=== PATIENT | female | born 1995 | race Hispanic/Latino ===

== ENCOUNTER 2021-05-17 19:02 | Emergency (ER) | payer OTHER, SELFPAY ==
[2021-05-17 19:22] VITALS: BP 109/78; PULSE 89; RESP 16; TEMP 36.8; O2SAT 99
[2021-05-17 19:40] LABS: Basophils Percent Auto 0.3 % (0.2-1.2); Eosinophils Absolute Auto 0.1 K/mm3 (0-0.3); Eosinophils Percent Auto 0.8 % (0-4.4); Hematocrit 36.4 % (37.0-47.0); Hemoglobin 12.1 g/dL (12.0-15.0); Immature Granulocyte Absolute 0.06 K/mm3 (0.00-0.031); Immature Granulocyte Percent A 0.6 % (0-0.5); Lymphocytes Absolute Auto 2.66 K/mm3 (0.9-3.2); Lymphocytes Percent Auto 27.7 % (18.3-44.2); Mean Corpuscular HGB Conc 33.2 g/dl (32-36); Mean Corpuscular Hemoglobin 28.6 pg (26-34); Mean Corpuscular Volume 86.1 fl (80-100); Mean Platelet Volume 9.7 fl (7.4-10.4); Monocytes Absolute Auto 0.8 K/mm3 (0.1-0.6); Neutrophils Percent Auto 62.6 % (45.5-73.1); Platelet Count Result 272 k/mm3 (150-375); Red Blood Count 4.23 M/mm3 (4.2-5.4); Red Cell Distribution Width 11.9 % (11.5-14.5); White Blood Count 9.6 K/mm3 (4.5-10.0)
[2021-05-17 19:51] LABS: Alanine Aminotransferase 13 U/L (4-35); Albumin Level 3.8 g/dL (3.5-5.1); Alkaline Phosphatase 104 U/L (38-126); Anion Gap 7 mmol/L (8-16); Aspartate Amino Transferase 20 U/L (14-36); Bilirubin,Total 0.3 mg/dL (0.2-1.3); Blood Urea Nitrogen 5 mg/dL (7-17); Calcium 8.8 mg/dL (8.4-10.2); Carbon Dioxide 20 mmol/L (22-30); Chloride 108 mmol/L (98-107); Estimated CRCL calculation 184 ml/min; Estimated Glomerular Filt Rate > 60; Glucose 82 mg/dL (65-105); Lipase 64 U/L (23-300); Potassium 3.5 mmol/L (3.4-5.0); Sodium 135 mmol/L (137-145)
[2021-05-17 20:28] LABS: Add Urine Microscopic? YES; Appearance Urine Clear (Clear); Bilirubin Urine Negative (Negative); Blood Urine Negative (Negative); Color Urine Colorless (Yellow); Glucose Urine UA Negative (Negative); Ketones Urine Trace mg/dL (Negative); Leukocyte Esterase Ur Negative LEU/UL (Negative); Nitrate Urine Negative (Negative); Protein Urine Negative (Negative); RBC Urine 0-2 /hpf (0-2); Squamous Epithelial Cell Urine Few /hpf (Few); Urobilinogen Urine Negative mg/dL (<2.0); WBC Urine 0-3 /hpf
[2021-05-17 20:30] LABS: Specific Grav Ur 1.001 (1.001-1.035)
[2021-05-17] MEDS: MORPHINE SULFATE (*CRX) 2 MG/ML INJ IV PUSH (21:00)
[2021-05-17] MEDS: ONDANSETRON INJ 4 MG/2 ML VIAL IV PUSH (21:00)
[2021-05-17] MEDS: SODIUM CHLORIDE 0.9% IV 1,000 ML 999 ML IV CONT (21:00)
--- NOTE | 2021-05-17 21:51 | ED.HA ---
HPI - Headache General Chief Complaint: Headache Stated Complaint: Dizziness - BLANCHARD 26 wks preg Time Seen by Provider: 05/17/21 20:21 Source: patient Mode of arrival: ambulatory Limitations: language barrier History of Present Illness HPI Narrative: 25-year-old about 26 weeks of gestation here with complaints of headache, feeling nauseated since this morning. Patient states that she went to work felt extremely dizzy and nauseated. She denies any fever or chills. Denies any abdominal cramping or vaginal bleeding. 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 MD elicited complaint: headache Onset (ago): day(s) (1) Onset description: gradually Location: frontal Severity: moderate Quality & Timing: aching Exacerbating factors: none Relieving factors: nothing Associated symptoms: nausea Treatments prior to arrival: none Related Data Home Medications Medication Instructions Recorded Confirmed PreCare 05/17/21 Allergies Allergy/AdvReac Type Severity Reaction Status Date / Time No Known Allergies Allergy Verified 05/17/21 20:44 Review of Systems Review of Systems: All systems reviewed & are unremarkable except as noted in HPI and below Constitutional: Constitutional: Reports no additional constitutional complaints Eyes: Eyes: Reports no additional eye complaints ENT: Reports system reviewed and no additional complaints, except as documented Cardiovascular: Cardiovascular: Reports no additional cardiovascular complaints Respiratory: Respiratory: Reports no additional respiratory complaints Gastrointestinal: Gastrointestinal: Reports as per HPI Musculoskeletal: Musculoskeletal: Reports no additional musculoskeletal complaints Neurologic: Reports system reviewed and no additional complaints, except as documented Exam Narrative: Exam Narrative: GENERAL: Well-appearing, well-nourished, and in no acute distress. HEAD: Normocephalic, atraumatic. EYES: PERRLA and EOMI. ENT: Nares clear, no rhinorrhea or epistaxis. Mucous membranes moist. NECK: Supple. CHEST: Clear to auscultation. No respiratory distress. HEART: Regular rate and rhythm. No murmur heard. Normal peripheral pulses. ABDOMEN: Gravid abdomen EXTREMITIES: Normal range of motion. No edema. SKIN: Warm, dry, no rash. NEURO: No focal deficits. Alert and oriented x3. PSYCH: Normal mood and affect. Course Course Emergency Course: Patient feeling much better after IV fluids, Zofran and morphine . Discussed with Dr. Lucinda burnsay to Discharge Vital Signs Vital signs: Vital Signs Temperature 36.8 C 05/17/21 19:22 Pulse Rate 89 05/17/21 19:22 Respiratory Rate 16 05/17/21 19:22 Blood Pressure 109/78 05/17/21 19:22 Pulse Oximetry 99 05/17/21 19:22 Temperature 36.8 C 05/17/21 19:22 Pulse Rate 89 05/17/21 19:22 Respiratory Rate 16 05/17/21 19:22 Blood Pressure 109/78 05/17/21 19:22 Pulse Oximetry 99 05/17/21 19:22 MDM - Headache Lab Data Result diagrams: 05/17/21 19:33 05/17/21 19:32 Labs: Lab Results 05/17/21 05/17/21 05/17/21 Range/Units 19:32 19:33 20:19 WBC 9.6 (4.5-10.0) K/mm3 RBC 4.23 (4.2-5.4) M/mm3 Hgb 12.1 (12.0-15.0) g/dL Hct 36.4 L (37.0-47.0) % MCV 86.1 (80-100) fl MCH 28.6 (26-34) pg MCHC 33.2 (32-36) g/dl RDW 11.9 (11.5-14.5) % Plt Count 272 (150-375) k/mm3 MPV 9.7 (7.4-10.4) fl Immature Gran % (Auto) 0.6 H (0-0.5) % Neut % (Auto) 62.6 (45.5-73.1) % Lymph % (Auto) 27.7 (18.3-44.2) % [place] % (Auto) 8.0 (2.6-8.5) % Eos % (Auto) 0.8 (0-4.4) % Baso % (Auto) 0.3 (0.2-1.2) % Lymph # (Auto) 2.66 (0.9-3.2) K/mm3 [place] # (Auto) 0.8 H (0.1-0.6) K/mm3 Eos # (Auto) 0.1 (0-0.3) K/mm3 Baso # (Auto) 0.0 (0.0-0.1) K/mm3 Abs Immat Gran (auto) 0.06 H (0.00-0.031) K/mm3 Absolute Neuts (auto) 6.0 (1.3-6.7) K/mm3 Absolute Nucleated RBC 0.0 (
[2021-05-17 22:18] VITALS: BP 108/70; PULSE 82; RESP 20; TEMP 36.8; O2SAT 100
== END 2021-05-17 22:18 | disposition home or self-care (01) ==
PROVIDERS: Emergency Provider Family Medicine; PCP Obstetrics & Gynecology Gynecology
DX: O26.892 Other specified pregnancy related conditions, second trimester (principal); R51.9 Headache, unspecified
CPT/HCPCS: 36415; 80053; 81001; 83690; 85025; 96361; 96374; 96375; 99284; J2270; J2405; J7030

== ENCOUNTER 2021-08-05 15:27 | Inpatient (IN) | payer OTHER, SELFPAY ==
[2021-08-05 15:46] VITALS: BP 149/85; PULSE 98
[2021-08-05 15:55] LABS: Basophils Percent Auto 0.2 % (0.2-1.2); Eosinophils Percent Auto 0.2 % (0-4.4); Hemoglobin 12.8 g/dL (12.0-15.0); Immature Granulocyte Absolute 0.05 K/mm3 (0.00-0.031); Immature Granulocyte Percent A 0.5 % (0-0.5); Lymphocytes Percent Auto 21.6 % (18.3-44.2); Mean Corpuscular HGB Conc 33.7 g/dl (32-36); Mean Corpuscular Hemoglobin 26.9 pg (26-34); Mean Corpuscular Volume 79.8 fl (80-100); Mean Platelet Volume 10.6 fl (7.4-10.4); Monocytes Absolute Auto 0.6 K/mm3 (0.1-0.6); Monocytes Percent Auto 6.2 % (2.6-8.5); Neutrophils Absolute Auto 6.9 K/mm3 (1.3-6.7); Neutrophils Percent Auto 71.3 % (45.5-73.1); Platelet Count Result 258 k/mm3 (150-375); Red Blood Count 4.76 M/mm3 (4.2-5.4); Red Cell Distribution Width 13.4 % (11.5-14.5); White Blood Count 9.7 K/mm3 (4.5-10.0)
[2021-08-05 16:00] VITALS: BMI 37.4
[2021-08-05 16:01] VITALS: BP 137/82; PULSE 107
[2021-08-05] MEDS: OXYTOCIN 30 UNITS/NS 500 ML 30 UNITS/500 ML BAG 999 UNITS IV CONT (16:15)
[2021-08-05 16:16] VITALS: BP 127/50; PULSE 104
--- NOTE | 2021-08-05 16:19 | WPDOBADMIT ---
Obstetrics - Admit Note Admission Note: record reviewed. No pertinent additions to the history and/or any subsequent changes in the physical findings that are not consistent with the expected course of the were found. Additions to the history and/or subsequent changes in the physical findings follow. Here in active labor. 7cm on arrival. 9 cm on my arrival. AROM with clear fluid then complete.
--- NOTE | 2021-08-05 16:22 | PM.OBPRVD ---
OB - Delivery Note Procedure Delivery date: 08/07/21 Intrapartal events: Precipitous Labor < 3 hours Induction method: none Delivery monitor: external FHT and external uterine Route of delivery: Laceration Description: None Specimen: No Quantitative Blood Loss (ml): 100 Anesthesia type: None Disposition: floor [place] Baby Date of : 08/05/21 Weeks of gestation at delivery: 38 Infant gender: Male presentation: vertex position: Right Occiput Anterior Placenta delivery description: Spontaneous cord vessel description: 3 Vessels (with loose true knot) score one minute: 9 score five minutes: 9
--- NOTE | 2021-08-05 16:24 | P.DS_ITS ---
DS: Admitting Diagnosis Discharge Date August 07, 2021 Admitting Diagnosis active labor @ 38 03/01 DS: Discharge Diagnosis Discharge Diagnosis (1) (normal spontaneous vaginal delivery): Code(s): O80 - Encounter for full-term uncomplicated delivery Status: Acute OB - DS: Summary OB Procedures : Ultrasound OB Procedures Intrapartum: Spontaneous Vag Delivery OB Procedures: : P.P. tubal ligation Peripartum Data Delivery Method: Natural Vaginal Laceration Description: None complications: none Status at Discharge Functional status at discharge: independent ambulation Overall status at discharge: patient is progressing back to baseline Time Spent with Patient Time attestation: Total time spent providing and/or coordinating discharge services: DS: Data Data Completed and Pending Labs on day of discharge: Labs from last 24 hours 08/05/21 08/05/21 15:47 15:47 WBC 9.7 RBC 4.76 Hgb 12.8 Hct 38.0 MCV 79.8 L MCH 26.9 MCHC 33.7 RDW 13.4 Plt Count 258 MPV 10.6 H Immature Gran % (Auto) 0.5 Neut % (Auto) 71.3 Lymph % (Auto) 21.6 [place] % (Auto) 6.2 Eos % (Auto) 0.2 Baso % (Auto) 0.2 Lymph # (Auto) 2.10 [place] # (Auto) 0.6 Eos # (Auto) 0.0 Baso # (Auto) 0.0 Abs Immat Gran (auto) 0.05 H Absolute Neuts (auto) 6.9 H Absolute Nucleated RBC 0.0 Nucleated RBC % 0.0 RPR Pending Discharge Plan Discharge Attending physician on discharge: Donna Lopez Discharging Clinician: Donna Lopez Anticipated Discharge Date/Time: 08/07/21 16:25 Patient Disposition: Home, Self-Care Activity: may shower and pelvic rest Diet: regular Patient Instructions: Antibiotic Form Stand Alone Forms: General Discharge Information Follow-up/Referrals: Donna Lopez MD [Physician] - 6 Weeks Discharge Medications: New hydrocodone-acetaminophen 5-325 mg tablet 1 tablet PO Q4H PRN (Reason: pain) Qty: 20 RF: 0 Continued PreCare 1 tab-cap PO DAILY RF: 0 Date of admission: 08/05/21 15:27 Primary Care Provider: Enzo,Krissy Admitting Provider: Donna Lopez Attending physician on admission: Donna Lopez Condition: Stable
[2021-08-05] MEDS: OXYTOCIN 30 UNITS/NS 500 ML 30 UNITS/500 ML BAG 125 UNITS IV CONT (16:30)
[2021-08-05] MEDS: IBUPROFEN 600 MG TABLET PO (16:45)
--- NOTE | 2021-08-05 16:48 | LDADM ---
This patient, Cate Rosa, was admitted to Labor/Delivery/Recovery 106 on 08/05/21 at 15:27. Plans for labor, pain management and were discussed with patient. Patient/family oriented to hospital policies and general routines including ID bracelet, bed and alarms, visiting hours, pain management, procedures, bathroom and other care routines, personal items, smoking policy, room service/diet and guest tray routines, security routines, and visiting hours. Patient/Family are encouraged to report perceived risks to care and to ask questions if they do not understand what they are told or what they should do. See OBIX for further documentation.
[2021-08-05 16:54] VITALS: BP 126/82; PULSE 93
[2021-08-05] MEDS: WITCH HAZEL 40 PADS 1 PAD TOPICAL (18:33)
[2021-08-05] MEDS: BENZOCAINE 20% AER SPR (*SP) 56 GM CAN 1 SPRAY TOPICAL (18:33)
--- NOTE | 2021-08-05 18:44 | OBPPTRN ---
Patient transferred to post room #281 via wheelchair. Support person present. Oriented to unit, room, information board, rooming in, admission packet and security measures. Patient verbalizes understanding.
[2021-08-05 19:00] VITALS: BP 109/59; PULSE 66; RESP 16; TEMP 37; O2SAT 99
[2021-08-05] MEDS: ACETAMINOPHEN 325 MG TABLET 650 MG PO (21:21)
[2021-08-05 23:30] VITALS: BP 104/51; PULSE 81; RESP 16; TEMP 36.4; O2SAT 99
[2021-08-06] MEDS: IBUPROFEN 600 MG TABLET PO ×4 (03:27→23:22)
[2021-08-06 04:00] VITALS: BP 108/56; PULSE 75; RESP 16; TEMP 36.6; O2SAT 99
[2021-08-06 04:19] LABS: Hematocrit 33.6 % (37.0-47.0); Hemoglobin 10.9 g/dL (12.0-15.0)
--- NOTE | 2021-08-06 08:30 | PC.NURSE ---
PT introductions made and plan of care discussed per post , pain management, breast feeding, daily care activities. PT received instructions and education this shift per one to one discussion, mom baby care guide and demonstration. PT and fob both recipients of such instructions and language being the only barrier to learning. PT verbalized understanding of such care.
[2021-08-06] MEDS: ACETAMINOPHEN 325 MG TABLET 650 MG PO ×3 (08:40→23:22)
[2021-08-06 08:42] VITALS: BP 96/54; PULSE 82; RESP 18; TEMP 36.6; O2SAT 99
[2021-08-06] MEDS: DOCUSATE SODIUM 100 MG CAPSULE PO ×2 (08:42→17:17)
[2021-08-06] MEDS: MULTIVIT/MIN/PREN/FOL AC/IRON TABLET 1 TAB PO (08:42)
--- NOTE | 2021-08-06 09:39 | PM.OBPNVD ---
OB - PN: Subj Subjective Date/time seen: 08/06/21 09:39 Patient comments: no complaints and pain well controlled baby status: doing well OB - PN: Obj Data Labs CBC & Chem 7: 08/06/21 03:25 Labs: Laboratory Results - last 24 hr 08/05/21 08/05/21 08/06/21 15:47 15:47 03:25 WBC 9.7 RBC 4.76 Hgb 12.8 10.9 L Hct 38.0 33.6 L MCV 79.8 L MCH 26.9 MCHC 33.7 RDW 13.4 Plt Count 258 MPV 10.6 H Immature Gran % (Auto) 0.5 Neut % (Auto) 71.3 Lymph % (Auto) 21.6 [place] % (Auto) 6.2 Eos % (Auto) 0.2 Baso % (Auto) 0.2 Lymph # (Auto) 2.10 [place] # (Auto) 0.6 Eos # (Auto) 0.0 Baso # (Auto) 0.0 Abs Immat Gran (auto) 0.05 H Absolute Neuts (auto) 6.9 H Absolute Nucleated RBC 0.0 Nucleated RBC % 0.0 Blood Type O Positive Antibody Screen Negative OB - PN A/P Plan day: 1 Plan: routine care and other (plan pp BTL tomorrow) Time Spent With Patient Time: Total time spent is greater than 50% in coordination of care (as documented) at patient's floor/unit and/or counseling patient: Exam : Bimanual exam- vagina & uterus: other (Uterus firm, nt @U)
[2021-08-06 17:15] VITALS: BP 100/62; PULSE 80; RESP 16; TEMP 36.8; O2SAT 99
[2021-08-06 23:00] VITALS: BP 105/71; PULSE 69; RESP 16; TEMP 36.8
[2021-08-07 07:50] VITALS: BP 118/67; PULSE 82; RESP 16; TEMP 36.7; O2SAT 100
--- NOTE | 2021-08-07 08:45 | PM.OBPNVD ---
OB - PN: Subj Subjective Date/time seen: 08/07/21 08:45 Patient comments: no complaints, pain well controlled and other (plans pp tubal today) baby status: doing well OB - PN: Obj Data Labs CBC & Chem 7: 08/06/21 03:25 OB - PN A/P Plan day: 2 Plan: routine care, discharge home and other (plan pp tubal this am) Time Spent With Patient Time: Total time spent is greater than 50% in coordination of care (as documented) at patient's floor/unit and/or counseling patient: Exam : Bimanual exam- vagina & uterus: other (Uterus firm, nt @U)
--- NOTE | 2021-08-07 08:46 | P.HP_ITS ---
H&P: HPI History of Present Illness Date/Time: 08/07/21 08:46 25-year-old 4 now para 4 proceeding with tubal ligation. Patient is aware this is a permanent and sterilizing procedure which will render her unable to have further children. Risks of infection, bleeding, injury to internal organs, and failure with increased risk of ectopic were reviewed in the office with a patrol police sergeant. Patient states no further questions today. She agrees to proceed. Chief Complaint: encounter for sterilization PMFSH Past Medical History Medical History (Updated 08/07/21 @ 08:49 by Donna Lopez MD) (normal spontaneous vaginal delivery) X4 Social History Social History Substance use: never Spiritual care concerns: No Meds Home Medications and Allergies Home Medications Medication Instructions Recorded Confirmed Type PreCare 1 tab-cap PO DAILY 05/17/21 08/05/21 History Allergies Allergy/AdvReac Type Severity Reaction Status Date / Time No Known Allergies Allergy Verified 05/17/21 20:44 Vital Signs Vital Signs - 24 hr 08/06/21 17:15 08/06/21 23:00 08/07/21 07:50 Temperature 98.2 F 98.2 F 98.1 F Pulse Rate 80 69 82 Respiratory Rate 16 16 16 Blood Pressure 100/62 105/71 118/67 Pulse Oximetry 99 100 Exam Const: General: comfortable and no acute distress GI: GI Palp: No abdominal tenderness and Yes Other GI palpation findings present ( fundus firm at umbilicus) Assessment and Plan Assessment and plan (1) (normal spontaneous vaginal delivery): Code(s): O80 - Encounter for full-term uncomplicated delivery Status: Acute Assessment and Plan: plan to discharge home today after recovery room (2) Encounter for sterilization: Code(s): Z30.2 - Encounter for sterilization Status: Acute Assessment and Plan: plan to proceed with tubal ligation
[2021-08-07 09:29] LABS: Rapid Plasma Reagin Non-Reactive (NonReactive)
--- NOTE | 2021-08-07 09:39 | WPDANESEPPF ---
Anes - Initial Pre Proc Eval Procedure: Operation Date: 08/07/21 10:30 Proposed Procedures p Post- Tubal Ligation - Donna Lopez MD Date/Time: 08/07/21 09:39 Surgeon: Donna Lopez MD Pre Op Diagnosis: Labor-Contractions Patient Data Age: 25 Gender: F Height: 1.52 m Weight: 87 kg Last Vital Signs Temp 36.7 C 08/07/21 07:50 Pulse 82 08/07/21 07:50 Resp 16 08/07/21 07:50 BP 118/67 08/07/21 07:50 Pulse Ox 100 08/07/21 07:50 Allergies Allergy/AdvReac Type Severity Reaction Status Date / Time No Known Allergies Allergy Verified 05/17/21 20:44 Home Medications Medication Instructions Recorded Confirmed Type PreCare 1 tab-cap PO DAILY 05/17/21 08/05/21 History hydrocodone-acetaminophen 1 tablet PO Q4H PRN #20 tablet 08/07/21 Rx Laboratory Tests 08/05/21 15:47 RPR Non-reactive (NonReactive) Patient hx anesthesia problems: none Family hx anesthesia problems: none [facility] Past Medical History Medical History (Updated 08/07/21 @ 08:50 by Donna Lopez MD) (normal spontaneous vaginal delivery) X4 Social History Social History Substance use: never Spiritual care concerns: No Anes - Eval Final PreProcedure Day of Procedure 08/07/21 09:39 Patient weight: obese Heart: regular rate and rhythm Lungs: clear to auscultation and normal air movement Airway: Mallampati scale class II Neurological: alert and oriented Last oral intake: >/= 8 hours ASA classification: II Emergent: no Anesthetic plan: proceed Anesthesia type and monitoring: general ETT and standard monitoring Informed Consent: The patient's anesthetic plan and its attendant risks and benefits were discussed with the patient/family/POA. Questions were solicited and answers provided to the satisfaction of the patient/family/POA.
[2021-08-07 10:00] VITALS: BP 117/76; PULSE 74; RESP 18; TEMP 36.2; O2SAT 100
[2021-08-07] MEDS: LACTATED RINGERS 1,000 ML 30 ML IV CONT ×2 (10:00→11:18)
--- NOTE | 2021-08-07 10:22 | WPDHPUPDATE1 ---
History and Physical Update Update Date/Time: 08/07/21 10:22 History and Physical has been reviewed, including an updated exam of the patient. There are NO changes in the patient's condition. Risks, benefits, and alternatives have been discussed and questions answered. Patient agrees to proceed with procedure.
--- NOTE | 2021-08-07 10:48 | SUR.PREOP ---
0945: LORI PEREZOR PRAMOD UTILIZED FOR ANES CONSULT AND PREOP RN COMMUNICATION
--- NOTE | 2021-08-07 10:56 | P.OP_ITS ---
Procedure Note - Detailed Date of Procedure 08/07/21 Pre-op Diagnosis encounter for sterilization Post-op Diagnosis same Procedure Performed Bilateral tubal ligation Surgeon Donna Lopez MD Anesthesia general Findings Normal-appearing tubes and ovaries Description of Procedure The patient was taken to the operating room and placed under anesthesia in the dorsal supine position. She was prepped and draped in usual sterile fashion. A vertical skin incision was made with a scalpel below the umbilicus approximately 4cm. The fascia is grasped with an [facility] and entered using Gonzalez scissors. The fascial incision was extended superiorly and inferiorly under direct visualization with Gonzalez scissors. The peritoneum was tented and entered with Metzenbaum scissors. The left tube is grasped with a Sullivan pulled through the incision crossclamped and the distal 2/3 of the tube excised. The pedicles tied off using 0 Vicryl. The identical procedure was performed on the right side. Good hemostasis is noted at both pedicles. The fascia is closed using 0 Vicryl in a running fashion. Subcutaneous tissues are irrigated and made hemostatic using Bovie cautery. Skin incision was closed using 4-0 Vicryl in a subcuticular fashion with Dermabond placed over the incision. Patient is awakened from anesthesia and taken to recovery room in stable condition. Sponge, needle, and instrument counts are correct per the OR staff. Estimated Blood Loss 5 Drains No Packing No Pathology yes (Bilateral tubes) Complications No immediate complications Condition stable Disposition PACU
[2021-08-07 11:18] VITALS: BP 119/68; PULSE 102; RESP 22; TEMP 36.5; O2SAT 99
[2021-08-07] MEDS: fentaNYL CITRATE INJ (*CRX) 100 MCG/2 ML VIAL 25 MCG IV PUSH ×4 (11:27→11:55)
[2021-08-07 11:30] VITALS: BP 122/82; PULSE 77; RESP 27; O2SAT 100
[2021-08-07 11:46] VITALS: BP 125/81; PULSE 83; RESP 21; O2SAT 98
[2021-08-07] MEDS: IBUPROFEN 600 MG TABLET PO (13:58)
[2021-08-07] MEDS: HYDROcodone/acetaminophen (*CRX) 5-325 MG TABLET 1 TAB PO (13:58)
--- NOTE | 2021-08-07 16:32 | PC.NURSE ---
Discharge instructions given used [facility] marbleizing machine tender
--- NOTE | 2021-08-10 07:32 | PM.OBTRLD ---
OB - Triage/Final Diagnosis Visit Information Reason for evaluation: threatened labor Comments/Additional reasons for admission: I have assessed the risk for this patient, Cate Rosa, and determined that she would benefit from observation care. Evaluation Laboratory results: Laboratory Tests 08/05/21 08/05/21 08/05/21 15:47 15:47 15:47 WBC 9.7 RBC 4.76 Hgb 12.8 Hct 38.0 MCV 79.8 L MCH 26.9 MCHC 33.7 RDW 13.4 Plt Count 258 MPV 10.6 H Immature Gran % (Auto) 0.5 Neut % (Auto) 71.3 Lymph % (Auto) 21.6 [place] % (Auto) 6.2 Eos % (Auto) 0.2 Baso % (Auto) 0.2 Lymph # (Auto) 2.10 [place] # (Auto) 0.6 Eos # (Auto) 0.0 Baso # (Auto) 0.0 Abs Immat Gran (auto) 0.05 H Absolute Neuts (auto) 6.9 H Absolute Nucleated RBC 0.0 Nucleated RBC % 0.0 RPR Non-reactive Blood Type O Positive Antibody Screen Negative 08/06/21 03:25 WBC RBC Hgb 10.9 L Hct 33.6 L MCV MCH MCHC RDW Plt Count MPV Immature Gran % (Auto) Neut % (Auto) Lymph % (Auto) [place] % (Auto) Eos % (Auto) Baso % (Auto) Lymph # (Auto) [place] # (Auto) Eos # (Auto) Baso # (Auto) Abs Immat Gran (auto) Absolute Neuts (auto) Absolute Nucleated RBC Nucleated RBC % RPR Blood Type Antibody Screen
[2021-08-10 08:35] VITALS: BP 124/85; PULSE 86; RESP 20; TEMP 36.9; O2SAT 100
== END 2021-08-07 16:32 | disposition home or self-care (01) | DRG 541 ==
LOC: ANHLDR 16:25 → ANHOB2 19:33
PROVIDERS: Admitting Provider Obstetrics & Gynecology Gynecology; PCP Registered Nurse; Visit Provider Obstetrics & Gynecology Gynecology
PROC: 0UB70ZZ Excision of Bilateral Fallopian Tubes, Open Approach (ICD-10-PCS; CPT 58605; principal; 2021-08-07 10:30)
DX: O62.3 Precipitate labor (principal); Z30.2 Encounter for sterilization; O69.2XX0 Labor and delivery complicated by other cord entanglement, with compression, not applicable or unspecified; Z3A.38 38 weeks gestation of pregnancy; Z37.0 Single live birth
CPT/HCPCS: 36415; 85014; 85018; 85025; 86592; 86850; 86900; 86901; 88302; A9270; J0330; J1100; J2250; J2405; J2590; J2704; J3010; J7120

== ENCOUNTER 2023-04-04 17:13 | Emergency (ER) | payer OTHER, SELFPAY ==
--- NOTE | ~2023-04-04 | CT_ITS ---
EXAMINATION: CT brain wo con DATE: 04/04/2023 18:19 INDICATION: Headache and dizziness. TECHNIQUE: Computed tomography (CT) of the head was performed without intravenous contrast. The mA wa s adjusted according to patient size. Iterative reconstruction technique was employed. The dose-lengt h product was 605.33 mGy-cm. COMPARISON: None FINDINGS: There is no intracranial hemorrhage, acute infarction, or abnormal intracranial mass lesion . The ventricles are normal in size. There is mild mucosal thickening in the paranasal sinuses. The m astoid air cells are normal. The orbits are normal. IMPRESSION: 1. Normal brain. Reviewed, dictated and finalized at location E. IMPRESSION: 1. Normal brain.
[2023-04-04 17:39] VITALS: BP 112/68; PULSE 70; RESP 16; TEMP 36.4; O2SAT 100
--- NOTE | 2023-04-04 18:06 | ED.HA ---
HPI - Headache General Chief Complaint: Headache <NOLA Gilmore Last Filed: 04/04/23 22:47> Stated Complaint: headache <NOLA Gilmore Last Filed: 04/04/23 22:47> Time Seen by Provider: 04/04/23 17:46 <Lindsey Umana PA-C - Last Filed: 04/04/23 22:47> History of Present Illness HPI Narrative: 27 y/o F with a history of headaches reports for evaluation of a frontal headache that started this morning with associated dizziness. Service Specialist used to obtain history. 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 She reports a popping sensation in her ears that started today. States this headache is unlike her previous headaches and is achy in nature. She denies neck pain, loss of consciousness, trauma, fevers, body aches, chills, cough or congestion, focal numbness or weakness, vomiting. She reports associated nausea and photophobia. <NOLA Gilmore Last Filed: 04/04/23 22:47> Related Data Home Medications: Home Medications Medication Instructions Recorded Confirmed PreCare 1 tab-cap PO DAILY 05/17/21 08/05/21 <Lindsey Umana PA-C - Last Filed: 04/04/23 22:47> Allergies/Adverse Reactions: Allergies Allergy/AdvReac Type Severity Reaction Status Date / Time No Known Allergies Allergy Verified 04/04/23 17:13 <NOLA Gilmore Last Filed: 04/04/23 22:47> Review of Systems Review of Systems: CONSTITUTIONAL: Denies fever, chills EYES: Denies visual changes, redness, or discharge. ENT: Denies rhinorrhea, congestion, sore throat, or otalgia. CARDIOVASCULAR: Denies chest pain, palpitations, or edema. RESPIRATORY: Denies cough or dyspnea. GASTROINTESTINAL: Denies abdominal pain, nausea, vomiting, or diarrhea. GENITOURINARY: Denies dysuria or hematuria. SKIN: Denies rash or itching. MUSCULOSKELETAL: Denies back pain, joint pain, or myalgia. NEUROLOGIC: See HPI PSYCHIATRIC: Denies anxiety or depression. <Lindsey Umana PA-C - Last Filed: 04/04/23 22:47> [facility] Past Medical History Medical History: Medical History (normal spontaneous vaginal delivery) X4 <Lindsey Umana PA-C - Last Filed: 04/04/23 22:47> Social History Social History: Social History Substance use: never Spiritual care concerns: No <Lindsey Umana PA-C - Last Filed: 04/04/23 22:47> Exam Narrative: GENERAL: Well-appearing, in no acute distress. Patient resting comfortably in exam bed. She is pleasant and conversational. HEAD: Normocephalic EYES: PERRLA, extraocular movements intact. No nystagmus ENT: Nares clear. Mucous membranes moist. Oropharynx without tonsillar hypertrophy exudate or other lesions. Tenderness over the frontal and maxillary sinuses bilaterally. Bilateral TMs are webster and nonbulging. NECK: Supple. Negative Brudzinski, no nuchal rigidity CHEST: No respiratory distress. Clear to auscultation, no adventitious breath sounds. HEART: Regular rate and rhythm. No murmur heard. Normal peripheral pulses. EXTREMITIES: Normal range of motion. No edema. SKIN: Warm, dry, no rash. NEURO: No focal deficits. Alert and oriented x3. Cranial nerves II through XII intact. Strength 5 out of 5 in bilateral upper and lower extremities. Normal [id number]. Negative pronator drift. PSYCH: Normal mood and affect. <Lindsey Umana PA-C - Last Filed: 04/04/23 22:47> Course [facility] THRESHER/PA Physician Supervision This is a was performed by both a physician and an APC. I performed all aspects of the MDM as documented w/ the following additions: 27-year-old Faroese-speaking female presenting with frontal headache. Extensive workup revealed sinusitis. Patient was discharged with symptomatic treatment. Return precauti
[2023-04-04] MEDS: SODIUM CHLORIDE 0.9% IV 1,000 ML 999 ML IV CONT (18:26)
[2023-04-04] MEDS: ACETAMINOPHEN 500 MG TABLET 1000 MG PO (18:27)
[2023-04-04] MEDS: diphenhydrAMINE HCl INJ 50 MG/ML VIAL 25 MG IV PUSH (18:27)
[2023-04-04] MEDS: PROCHLORPERAZINE EDISYLATE 10 MG/2 ML VIAL IV PUSH (18:27)
[2023-04-04 18:41] LABS: Basophils Percent Auto 0.5 % (0.2-1.2); Eosinophils Absolute Auto 0.1 K/mm3 (0-0.3); Eosinophils Percent Auto 1.7 % (0-4.4); Hematocrit 39.9 % (37.0-47.0); Hemoglobin 13.2 g/dL (12.0-15.0); Immature Granulocyte Absolute 0.02 K/mm3 (0.00-0.031); Immature Granulocyte Percent A 0.2 % (0-0.5); Lymphocytes Absolute Auto 3.53 K/mm3 (0.9-3.2); Lymphocytes Percent Auto 43.3 % (18.3-44.2); Mean Corpuscular HGB Conc 33.1 g/dl (32-36); Mean Corpuscular Hemoglobin 28.9 pg (26-34); Mean Corpuscular Volume 87.5 fl (80-100); Mean Platelet Volume 9.8 fl (7.4-10.4); Monocytes Absolute Auto 0.7 K/mm3 (0.1-0.6); Neutrophils Absolute Auto 3.8 K/mm3 (1.3-6.7); Neutrophils Percent Auto 46.3 % (45.5-73.1); Platelet Count Result 302 k/mm3 (150-375); Red Blood Count 4.56 M/mm3 (4.2-5.4); Red Cell Distribution Width 12.4 % (11.5-14.5); White Blood Count 8.2 K/mm3 (4.5-10.0)
[2023-04-04 19:16] LABS: Influenza A QL RT-PCR Negative (Negative); Influenza B QL RT-PCR Negative (Negative); SARS-CoV-2 RNA PCR Negative (Negative)
[2023-04-04 19:30] LABS: Alanine Aminotransferase 27 U/L (6-35); Albumin Level 4.3 g/dL (3.5-5.1); Alkaline Phosphatase 58 U/L (38-126); Anion Gap 7 mmol/L (8-16); Aspartate Amino Transferase 30 U/L (14-36); Bilirubin,Total 0.4 mg/dL (0.2-1.3); Blood Urea Nitrogen 15 mg/dL (7-17); Calcium 8.6 mg/dL (8.4-10.2); Carbon Dioxide 27 mmol/L (22-30); Chloride 106 mmol/L (98-107); Estimated CRCL calculation 130 ml/min; Estimated Glomerular Filt Rate > 60; Glucose 89 mg/dL (65-110); Potassium 3.7 mmol/L (3.4-5.0); Sodium 140 mmol/L (137-145)
[2023-04-04 19:56] VITALS: BP 98/58; PULSE 70
[2023-04-04 19:59] VITALS: BP 117/77; PULSE 86
[2023-04-04 20:00] VITALS: BP 117/80; PULSE 87
[2023-04-04 20:31] VITALS: BP 103/69; PULSE 80; RESP 16; O2SAT 100
== END 2023-04-04 20:30 | disposition home or self-care (01) ==
PROVIDERS: Emergency Provider Physician Assistant; PCP Registered Nurse
DX: G44.209 Tension-type headache, unspecified, not intractable (principal); J32.0 Chronic maxillary sinusitis; Z20.822 Contact with and (suspected) exposure to COVID-19
CPT/HCPCS: 36415; 70450; 80053; 81025; 85025; 87636; 96361; 96374; 96375; 99284; A9270; J0780; J1200; J7030

== ENCOUNTER 2023-11-24 12:17 | Emergency (ER) | payer OTHER, SELFPAY ==
--- NOTE | ~2023-11-24 | XR_ITS ---
EXAM: XR foot LT min 3V DATE: 11/24/2023 15:30 HISTORY: injury to great toe nail . COMPARISON: None available. FINDINGS: Normal mineralization. No fracture or dislocation. No lytic or blastic lesion. Joint space s are maintained. No erosion or periosteal change. Irregularity of the first digit toenail. IMPRESSION: No acute osseous finding in the left foot. Reviewed, dictated and finalized at location K. [facility]
[2023-11-24 12:33] VITALS: BP 117/71; PULSE 80; RESP 18; TEMP 36.6; O2SAT 100
--- NOTE | 2023-11-24 15:00 | ED.LOWEXIN ---
HPI - Extremity Injury (Lower) General Chief Complaint: Extremity Injury, Lower Stated Complaint: left foot big toe injury Time Seen by Provider: 11/24/23 14:59 Source: patient Mode of arrival: ambulatory Limitations: language barrier History of Present Illness HPI Narrative: patient is a 27-year-old female without any significant past medical history presents emergency department today for evaluation of left great toe pain. She states a week ago she injured it hitting it on a table and that the toenail has been starting to come off. She has not been seen for it. Denies any fever or chills. Denies any numbness or tingling to the left foot. She states that just 2 days ago it started to bleed. Related Data Home Medications Medication Instructions Recorded Confirmed cephalexin 500 mg capsule mg 11/24/23 Allergies Allergy/AdvReac Type Severity Reaction Status Date / Time No Known Allergies Allergy Verified 11/24/23 14:27 PMFSH Past Medical History Medical History (normal spontaneous vaginal delivery) X4 Social History Social History Substance use: never Spiritual care concerns: No Exam Narrative: GENERAL: Well-appearing, well-nourished, and in no acute distress. No respiratory distress. HEART: Regular rate. 2+ pedal pulse to left foot ABDOMEN: Soft, nontender, nondistended, normal active bowel sounds. EXTREMITIES: there is swelling to the left great toe-full ROM noted. toenail has been pulled up although is still intact, dried blood surrounding. no proximal streaking. distal NV intact. cap refill <2 seconds. no obvious deformity. SKIN: Warm, dry, no rash. NEURO: No focal deficits. Alert and oriented x3.distal NV intact to the LLE. PSYCH: Normal mood and affect. Course Vital Signs Vital signs: Vital Signs Temperature 98 F 11/24/23 12:33 Pulse Rate 80 11/24/23 12:33 Respiratory Rate 18 11/24/23 12:33 Blood Pressure 117/71 11/24/23 12:33 Pulse Oximetry 100 11/24/23 12:33 Oxygen Delivery Room Air 11/24/23 12:33 Temperature 98 F 11/24/23 12:33 Pulse Rate 80 11/24/23 12:33 Respiratory Rate 18 11/24/23 12:33 Blood Pressure 117/71 11/24/23 12:33 Pulse Oximetry 100 11/24/23 12:33 Oxygen Delivery Room Air 11/24/23 12:33 MDM - Extremity Injury (Lower) MDM Narrative Medical decision making narrative: Presents for pain to the left great toe and having her toenail pulled up. Injured week ago. No underlying fracture on x-ray. Discussion to follow up with Podiatry. Discussed the risk of removing the toenail here which do not feel is appropriate here in the ED. I will go ahead and place her on oral antibiotics as well as antibiotic ointment. we cleaned her foot thoroughly and then applied abx ointment and dressing. Nontoxic, no signs of systemic infection. Patient is nontoxic in appearance. Stable re-evaluation exam just before discharge. Patient in no acute distress. Vitals within normal limits. Discussed return precautions with the patient including all the red flag signs or symptoms of when to return the patient. The patient verbalized understanding and was agreeable with discharge and close follow-up Discharge Plan Discharge Clinical Impression: Injury of great toenail, Great toe pain Patient Disposition: Home, Self-Care Condition: Stable Instructions: Antibiotic Form Additional Instructions: see podiatry take all antibiotics epson salt soaks tylenol and motrin for pain-alternate Emergency Departments (ED) provide medical screening exams and initial stabilizing treatment of emergency medical conditions. Medicine is an inexact science and many conditions cannot be diagnosed or completely treated during a single ED visit. Your treating healthcare provider(s) today feel your condition has been stabilized so further
[2023-11-24] MEDS: ACETAMINOPHEN 500 MG TABLET 1000 MG PO (15:43)
[2023-11-24] MEDS: TETANUS,DIPHTHERIA,AC PERTUSSIS ADULT (0.5 ML) BOOSTRIX IM (15:43)
[2023-11-24] MEDS: NEOMYCIN/POLYMYXIN/BACITRACIN OINTMENT PACKET 1 PACKET TOPICAL (17:00)
== END 2023-11-24 17:04 | disposition home or self-care (01) ==
PROVIDERS: Emergency Provider Nurse Practitioner; PCP Registered Nurse
DX: S99.922A Unspecified injury of left foot, initial encounter (principal); W22.03XA Walked into furniture, initial encounter; Z23 Encounter for immunization
CPT/HCPCS: 73630; 90471; 90715; 99283; A9270

== ENCOUNTER 2025-03-19 17:54 | Emergency (ER) | payer OTHER, SELFPAY ==
[2025-03-19 18:02] VITALS: BP 120/71; PULSE 95; RESP 20; TEMP 36.9; O2SAT 100
[2025-03-19 18:11] VITALS: PULSE 95; RESP 20; O2SAT 100
--- NOTE | 2025-03-19 18:24 | ED.URI ---
HPI - URI/Sore Throat General Chief Complaint: Upper Respiratory Infection Stated Complaint: fever,BLANCHARD,not eating Time Seen by Provider: 03/19/25 18:10 Source: patient Mode of arrival: ambulatory Limitations: no limitations History of Present Illness HPI Narrative: 29 yo F presents with c/o congestion, sinus pressure, PND, Headaches for 1 wk. Not taking any OTC meds to treat symptoms. Recently started havin sore throat and cough. No CP or SOB. all systems reviewed and negative except as noted above. Related Data Allergies Allergy/AdvReac Type Severity Reaction Status Date / Time No Known Allergies Allergy Verified 11/24/23 14:27 Review of Systems Review of Systems: CONSTITUTIONAL: Denies fever, chills, or sweats. reports fatigue EYES: Denies visual changes, redness, or discharge. ENT: Reports rhinorrhea, congestion, sinus pressure, sore throat. denies otalgia. CARDIOVASCULAR: Denies chest pain, palpitations, or edema. RESPIRATORY: reports cough. denies dyspnea. GASTROINTESTINAL: Denies abdominal pain, nausea, vomiting, or diarrhea. GENITOURINARY: Denies dysuria or hematuria. SKIN: Denies rash or itching. MUSCULOSKELETAL: Denies back pain, joint pain, or myalgia. NEUROLOGIC: Denies headache, numbness, or weakness. PSYCHIATRIC: Denies anxiety or depression. All other systems reviewed are negative, except as documented in HPI. PMFSH Past Medical History Medical History (normal spontaneous vaginal delivery) X4 Social History Social History Substance use: never Spiritual care concerns: No Comments At time of signature, agree with nursing past medical, surgical, social and family history. There is no relevant family history pertinent to the presenting complaint. Exam Narrative: GENERAL: This is a well-nourished, well-developed patient, ill-appearing but no acute distress HEAD: normocephalic, atraumatic. EYES: PERRL. injected bilaterally without drainage EARS: External ears normal, auditory canals clear and without drainage, TMs normal without perforation. Hearing grossly intact. NOSE: External nose normal with purulent nasal drainage, erythema and swelling to bilateral nares. Bilateral maxillary sinus tenderness on palpation THROAT: Mucous membranes moist, erythema with postnasal drainage, no significant swelling or exudates NECK: Neck supple, non-tender without lymphadenopathy, masses or thyromegaly. CARDIOVASCULAR: Regular rate and rhythm without murmurs, gallops, or rubs. RESPIRATORY: Clear to auscultation. Breath sounds equal bilaterally. No wheezes, rales, or rhonchi. SKIN: warm, Dry, intact with no suspicious lesions or rash, good texture and turgor. NEURO: awake, alert, and oriented to person, place and time. There were no obvious focal neurologic abnormalities. EXTREMITIES: No joint tenderness, effusion, or edema noted. Course Course Level of Care: Express Care Visit Vital Signs Vital signs: Vital Signs Temperature 36.9 C 03/19/25 18:02 Pulse Rate 95 03/19/25 18:02 Respiratory Rate 20 03/19/25 18:02 Blood Pressure 120/71 03/19/25 18:02 Pulse Oximetry 100 03/19/25 18:02 Oxygen Delivery Room Air 03/19/25 18:02 Temperature 36.9 C 03/19/25 18:02 Pulse Rate 95 03/19/25 18:11 Respiratory Rate 20 03/19/25 18:11 Blood Pressure 120/71 03/19/25 18:02 Pulse Oximetry 100 03/19/25 18:11 Oxygen Delivery Room Air 03/19/25 18:02 reviewed MDM - URI/Sore Throat MDM Narrative Medical decision making narrative: will treat patient for bacterial sinusitis due to duration of symptoms and exam findings Please be advised this is a medical document. It is intended for xcne-[id number] communication. It is written in medical language and may contain unfamiliar abbreviations or verbiage. Medical documents are intended to carry relevant information, facts as evident, and the clinical opinion of the practitioner at the time of the encounter. This report may have been done utilizing a voice recognition system. Attempts have been made to correct errors. However, there may be uncorrected grammatical, spelling, and recognition errors present. The file time of this note does not necessarily represent the time of service. Discharge Plan Discharge Clinical Impression: Acute bacterial sinusitis Patient Disposition: Home Condition: Stable Instructions: Antibiotic Form, Sinusitis (ED) Additional Instructions: your strep test was negative today. Take medications as prescribed. Drink at least 64 oz of water a day. Place cool mist humidifier in bedroom where you sleep. Follow-up with your doctor if symptoms are not improving. Patient Language: [place] Prescriptions: New amoxicillin 875 mg tablet 875 mg PO Q12H 7 Days Qty: 14 0RF methylprednisolone [Medrol (Joe)] 4 mg tablets,dose pack See Rx Instructions PO .COMPLEX Qty: 21 0RF Rx Instructions: orally per package directions fluticasone propionate [Flonase Allergy Relief] 50 mcg/actuation spray,suspension 1 spray intranasal BID Qty: 16 0RF Rx Instructions: administer into each nostril loratadine [Claritin] 10 mg tablet 10 mg PO DAILY Qty: 30 0RF azelastine 0.05 % drops 1 drp EACH EYE BID Qty: 6 0RF Follow-up/Referrals: Eris,NIRAV Rey [Primary Care Provider] - Stand Alone Forms: Work/School Release IP Time of Disposition: 18:22
[2025-03-19 18:33] LABS: EDSTREPNEGPOS1 Negative (Negative)
== END 2025-03-19 18:25 | disposition home or self-care (01) ==
PROVIDERS: Emergency Provider Nurse Practitioner Family; PCP Registered Nurse
DX: J01.90 Acute sinusitis, unspecified (principal)
CPT/HCPCS: 87081; 87880; 99213; G0463